=== PATIENT | male | born 1960 | race Caucasian/White ===

== ENCOUNTER 2018-07-22 10:26 | Inpatient (IN) | payer OTHER ==
[~2018-07-22] VITALS: Ht 182.8 cm; Wt 98.5 kg
[2018-07-22] VITALS (13 sets, daily range): BP systolic 90–134; BP diastolic 54–89
--- NOTE | ~2018-07-22 | EKG ---
[place], [place] ELECTROCARDIOGRAM REPORT NAME: MALU AGRAWAL JR UNIT #: [id number] ROOM: 521 DOCTOR: AGUSTINA DRAFT REPORT BIRTHDATE: [birth year] [facility] Test Date: 2018-07-25 Test Time: 00:44:21 Pat Name: MALU AGRAWAL Department: Room: 521 1 Gender: M Head Of Insight: Erica Roman : 1960 Requested By: JENNIFER TENA Order Number: [id number] Reading MD: Froylan Harrell Measurements Intervals [place] Rate: 60 P: 31 ND: 173 QRS: 61 QRSD: 103 T: 55 QT: 450 QTc: 450 Interpretive Statements Sinus rhythm Left atrial enlargement Borderline low voltage, extremity leads Baseline wander in lead(s) aVR,V3 Compared to ECG 07/22/2018 11:16:29 Atrial abnormality now present Atrial fibrillation no longer present Right-axis deviation no longer present ST (T wave) deviation no longer present Electronically Signed On 07-25-2018 5:57:39 PDT by Froylan Harrell CM:EKGRPT:ELECTROCARDIOGRAM REPORT [id number] JENNIFER BERRIOS DRAFT REPORT JENNIFER TENA MD
--- NOTE | ~2018-07-22 | EKG ---
[place], [place] ELECTROCARDIOGRAM REPORT NAME: MALU AGRAWAL JR UNIT #: [id number] ROOM: 521 DOCTOR: AGUSTINA DRAFT REPORT BIRTHDATE: [birth year] [facility] Test Date: 2018-07-25 Test Time: 05:48:02 Pat Name: MALU AGRAWAL Department: Room: 521 1 Gender: M Tanning Salon Attendant: Genesis Vazquez : 1960 Requested By: JENNIFER TENA Order Number: [id number] Reading MD: Eduard Allison MD Measurements Intervals [place] Rate: 57 P: 40 HI: 170 QRS: 65 QRSD: 97 T: 29 QT: 406 QTc: 396 Interpretive Statements Sinus rhythm Atrial premature complex Probable left atrial enlargement Borderline low voltage, extremity leads Baseline wander in lead(s) V1 Compared to ECG 07/22/2018 11:16:29 Atrial premature complex(es) now present Atrial fibrillation no longer present Right-axis deviation no longer present ST (T wave) deviation no longer present Electronically Signed On 07-29-2018 14:12:03 PDT by Eduard Allison MD CM:EKGRPT:ELECTROCARDIOGRAM REPORT [id number] JENNIFER TENA MD EPIPHANY DRAFT REPORT JENNIFER TENA MD
--- NOTE | ~2018-07-22 | EKG ---
[place], [place] ELECTROCARDIOGRAM REPORT NAME: MALU AGRAWAL JR UNIT #: [id number] ROOM: 521 DOCTOR: AGUSTINA DRAFT REPORT BIRTHDATE: [birth year] [facility] Test Date: 2018-07-22 Test Time: 11:16:29 Pat Name: MALU AGRAWAL Department: Room: 521 Gender: M Overedger: : 1960 Requested By: MELISSA REYNOSO Order Number: [id number] Reading MD: Gianni Carmona MD Measurements Intervals [place] Rate: 183 P: ID: QRS: 143 QRSD: 90 T: 59 QT: 296 QTc: 517 Interpretive Statements Atrial fibrillation with rapid V-rate Right axis deviation ST depression, probably rate related Baseline wander in lead(s) V2 Electronically Signed On 07-23-2018 4:45:06 PDT by Gianni Carmona MD CM:EKGRPT:ELECTROCARDIOGRAM REPORT [id number] MELISSA JJ DRAFT REPORT MELISSA REYNOSO DO
--- NOTE | ~2018-07-22 | CON ---
[place], [place] REPORT OF CONSULTATION NAME: MALU AGRAWAL JR [facility] #: [id number] UNIT #: [id number] ROOM: 521 DOCTOR: JENNIFER TENA MD BIRTHDATE: [birth year] DOS: 07/23/2018 HISTORY OF PRESENT ILLNESS: A 58-year-old gentleman basically came in, was found to be significantly hypotensive and was found to be in atrial flutter/fibrillation with rapid ventricular response. The patient did not have any chest discomfort. He drinks about 2-3 cups of coffee every day. He had a liter of yesterday's morning per his father. The patient has a family history of atrial fibrillation flutter. Right now, he continues to be in atrial fibrillation. He is on 15 mcg of Cardizem. Cardiac enzymes have been negative. PAST MEDICAL HISTORY: Contusion of the right knee, history of rib fractures. PAST SURGICAL HISTORY: History of cataract surgery, and chest tube placement. SOCIAL HISTORY: Denies any drug abuse, occasional alcohol use and not a smoker. FAMILY HISTORY: Positive for cardiac arrhythmia. Father had an ablation. ALLERGIES: CLARITHROMYCIN. HOME MEDICATIONS: Aspirin. REVIEW OF SYSTEMS: CONSTITUTIONAL: No fever, no chills. HEENT: Reports visual changes and dizziness. CARDIOVASCULAR: Does have palpitations. RESPIRATORY: Does have shortness of breath. GASTROINTESTINAL: No nausea, no vomiting. GENITOURINARY: No dysuria. PHYSICAL EXAMINATION: VITAL SIGNS: Blood pressure is 120/70. He is in atrial fibrillation, rate is about 95 beats per minute on 15 mcg of Cardizem. NECK: Supple, no JVD. LUNGS: Diminished breath sounds. HEART: Sounds are irregularly irregular. ABDOMEN: Soft, nontender. NEUROLOGICAL: Stable. LABORATORY DATA: Shows hemoglobin 14.2, hematocrit 43. Electrolytes are normal. Creatinine is 0.7. Cardiac enzymes have been negative. Hemoglobin A1c is 5.7, total protein 6.1. TSH is normal. IMPRESSION: With atrial fibrillation flutter with rapid ventricular response. Family history of atrial fibrillation. RECOMMENDATIONS: We will proceed with a Lexiscan Cardiolite stress test. We will review the echocardiogram. Also, start the patient on Rythmol, anticoagulate the patient and start rate control with beta blockers and if he does not control we will consider cardioversion. We will follow up. [place], [place] REPORT OF CONSULTATION NAME: MALU AGRAWAL JR [facility] UNIT #: [id number] ROOM: 521 DOCTOR: JENNIFER TENA MD BIRTHDATE: [birth year] JENNIFER TENA MD CM:CONSTR:REPORT OF CONSULTATION [id number] 07/31/18 0904 interface
--- NOTE | ~2018-07-22 | PR ---
[place], [place] PROGRESS NOTE NAME: MALU AGRAWAL JR [facility] #: [id number] UNIT #: [id number] ROOM: 521 DOCTOR: MEENAKSHI THOMAS MD BIRTHDATE: [birth year] DOS: 07/24/[address] Carmona. SUBJECTIVE: This patient was admitted 2 days ago with not feeling well. He did not have any palpitations. He had been feeling tired and weak. He did not have any swelling in the legs or much breathing difficulty, just did not feel right. He was found to be in atrial fibrillation with very rapid ventricular rate and he was treated with Cardizem to slow down the heart rate. He went in to sinus rhythm yesterday. He feels fine and has not had any nausea, vomiting or blood in the stools and has not had any chest pain or breathing difficulty and no palpitations and no neurological symptoms. PHYSICAL EXAMINATION: GENERAL: The patient is very pleasant, alert. He is comfortable. He is not tachypneic. VITAL SIGNS: Pulse is regular at 72, blood pressure is 115/75. NECK: JVP is +8 cm with positive AJR. LUNGS: He has markedly reduced breath sounds on the left side, mainly at the base and few adventitious sounds. EXTREMITIES: No edema in the lower extremities. DIAGNOSTIC DATA: Monitor shows normal sinus rhythm with heart rate in the 70s. An echocardiogram was read by Dr. Carmona with LV ejection fraction of 30-35%. I reviewed the images. I think the EF is close to 40%. He had a nuclear Cardiolite study done yesterday and myocardial perfusion images did not demonstrate any ischemia. IMPRESSION: 1. This patient has nonischemic cardiomyopathy, most likely tachycardia induced. 2. He has clinical evidence of cardiac decompensation, although he has minimal symptoms. RECOMMENDATIONS: This patient needs aggressive treatment for nonischemic cardiomyopathy. Metoprolol succinate is a better drug than tartrate, therefore, he will be switched over to same preparation at the same dose, i.e. IV 50 mg b.i.d. Propafenone is not a good drug because of the patient's significantly reduced LV systolic function. I would prefer amiodarone for the next few months and this should be started 36 hours after the last dose of propafenone. The patient does need small doses of furosemide as well and he needs to be on an GEOVANY inhibitor as well. An echocardiogram needs to be repeated in 2-4 weeks to see how much recovery LV has undergone. [place], [place] PROGRESS NOTE NAME: MALU AGRAWAL JR UNIT #: [id number] ROOM: 521 DOCTOR: MEENAKSHI THOMAS MD BIRTHDATE: [birth year] MEENAKSHI THOMAS MD CM:PNTRANS [id number] MEENAKSHI THOMAS MD 07/24/18 2030 interface
--- NOTE | ~2018-07-22 | ST ---
[place], [place] EXERCISE STRESS TEST REPORT NAME: MALU AGRAWAL JR [facility] #: [id number] UNIT #: [id number] ROOM: 521 DOCTOR: JENNIFER TENA MD BIRTHDATE: [birth year] DOS: 07/23/2018 PROCEDURE AND FINDINGS: Baseline echocardiogram, atrial fibrillation, slightly rapid ventricular response. 0.4 mg Lexiscan, duration of 10 seconds. With Lexiscan, no new EKG changes. Blood pressure and heart rate response are normal. Nuclear images will be reported separately. FINAL IMPRESSION: Indeterminate test secondary to underlying atrial fibrillation. No new EKG changes with Lexiscan. No chest pain with Lexiscan. Blood pressure and heart rate are normal. Nuclear images will be reported separately. JENNIFER TENA MD CM:STRESS:EXERCISE STRESS TEST REPORT [id number] JENNIFER TENA MD
[~2018-07-22 10:26] MED LIST: ASPIRIN325 MG PO; HYDROCODONE BIT1 T11 PO; MOTRIN800 MG PO; NAPROSYN500 MG PO; TYLENOL500 MG PO
[2018-07-22 11:18] LABS: BASO % 0.2 % (0.0-1.0); EOS % 0.3 % (1.0-4.0); HEMATOCRIT 45.2 % (42.0-52.0); LYMPH # 0.8 10*3/uL (1.3-4.4); LYMPH % 7.9 % (27.0-41.0); MEAN CELL VOLUME 94.2 fl (80.0-94.0); MEAN CORPUSCULAR HGB 31.3 pg (27.0-31.0); MEAN CORPUSCULAR HGB CONC 33.2 g/dl (33.0-37.0); MEAN PLATELET VOLUME 8.5 fl (9.6-12.3); MONO # 0.6 10*3/uL (0.1-1.0); MONO % 5.7 % (3.0-9.0); NEUT # 8.8 10*3/uL (2.3-7.9); NEUT % 85.5 % (47.0-73.0); PLATELET COUNT AUTOMATED 226 10*3/uL (130-400); RED CELL DISTRI WIDTH 12.9 % (0-14.5); WHITE BLOOD COUNT 10.3 10*3/uL (4.8-10.8)
--- NOTE | 2018-07-22 11:19 | NUR ---
PT'S RATE JUMPS FROM 70 TO 189. PROVIDER MADE AWARE. BP ALSO DROPS FROM 110 SYSTOLIC TO 90 SYSTOLIC (SEE). PT DENIES ANY COMPLAINTS.
[2018-07-22 11:38] LABS: ALBUMIN 3.4 gm/dl (3.1-4.5); ALKALINE PHOSPHATASE 67 U/L (45-117); BUN 22 mg/dl (7-24); CHLORIDE 108 mmol/L (98-107); CREATININE 1.13 mg/dL (0.70-1.30); POTASSIUM 3.9 mmol/L (3.5-5.1); SGOT/AST 15 IU/L (3-35); SGPT/ALT 16 U/L (12-78); SODIUM 142 mmol/L (136-145); TOTAL PROTEIN 6.7 gm/dL (6.4-8.2)
[2018-07-22 11:39] LABS: TROPONIN I < 0.015 ng/ml (<0.045)
--- NOTE | 2018-07-22 12:14 | NUR ---
PT HAS HAD MULTIPLE EPISODES WHERE HIS RATE AND RHYTHM RETURN TO SINUS AND UNDER 100 WHICH LAST FOR 30 SECONDS THEN IMMEDIATLEY JUMP BACK TO A RATE OF 180-190. A LITER BOLUS HAS INFUSED. THESE RHYTHM CHANGES WERE CAPTURED ON BEDSIDE MONITOR AND RECORDED.
--- NOTE | 2018-07-22 12:37 | NUR ---
DR REYNOSO DECLINES TO TREAT PT'S RAPID RATE OR HIS RIGHT BASILAR INFILTRATE, STATES HE SPOKE WITH HOSPITALIST ABOUT THESE ISSUES.
--- NOTE | 2018-07-22 12:49 | NUR ---
AT TIME OF ADMISSION, PT NOW STATES HE HAS AN "INVALID AND OBESE AT HOME WHO CAN'T TAKE CARE OF HERSELF IF I GET ADMITTED AND THERE IS NO ONE ELSE TO ASK....CAN YOU GET ME A ONSHORE DIVER TO TALK TO". DR REYNOSO MADE AWARE.
--- NOTE | 2018-07-22 13:01 | NUR ---
DR REYNOSO SPEAKS WITH PT AT LENGTH AND PT NOW ADMITS THAT HIS PARENTS COULD CARE FOTR HIS FOR A DAY OR TWO. TRANSPORT WAS TO BEGIN BUT THEN HOSPITALIST CAME TO ROOM. TRANSPORT PENDING. VITALS UNCHANGED, RATE 160.
--- NOTE | 2018-07-22 13:28 | NUR ---
A 58, admitted to , under the services of PAUL Vaughn DO with a diagnosis of ATRIAL FIB WITH RVR. Chief complaint is "STATES HE JUST FELT WEIRD". Patient arrived via stretcher from ER. Monitor applied. Initial assessment completed. Vital signs taken and recorded. PAUL VAUGHN DO notified of admission to the unit. Orders received. See assessment for past medical history, medications and allergies. Patient and/or family oriented to unit. [facility]. Clothing/patient valuable form completed. TARIQ ZAMBRANO
--- NOTE | 2018-07-22 15:41 | NUR ---
PT BP 118/62, HR 148 DR GOODMAN NOTIFIED
[2018-07-22 16:40] LABS: BILIRUBIN NEGATIVE (NEGATIVE); BLOOD 1+ (NEGATIVE); CLARITY CLEAR (CLEAR); COLOR YELLOW (YELLOW); GLUCOSE NEGATIVE (NEGATIVE); KETONE 1+ (NEGATIVE); LEUKO ESTERASE NEGATIVE (NEGATIVE); NITRITE NEGATIVE (NEGATIVE); UROBILINOGEN 0.2 E.U./dl (0.2-1.0)
[2018-07-22 16:59] LABS: BACTERIA 1+
[2018-07-22 17:00] LABS: EPITHELIAL CELLS 0-2
--- NOTE | 2018-07-22 18:44 | NUR ---
PT REQUESTED AND WAS MEICATED WITH TYLENOL FOR C/O HEADACHE. CARDIZEM INFUSING PER ORDERS AT 15MG/HR. PT AFLUTTER ON MONIOR WITH RATE IN 100'S. CALL LIGHT IN REACH. WILL MONITOR
--- NOTE | 2018-07-22 18:45 | NUR ---
DR GOODMAN NOTIFIED OF LOVENOX ORDER AND HEPARIN SQ. ORDERS RECEIVED TO DC LOVENOX AND KEEP HEPARIN ORDERED BY DR TENA. ALSO NOTIFIED OF CARDIZEM INFUSING AT 15MG STILL WITH HR OF 100-110'S AND PT A FLUTTER. HE STATES UNDERSTANDING. MITCHEL HERNANDES
[2018-07-23] VITALS (9 sets, daily range): BP systolic 119–132; BP diastolic 58–89
--- NOTE | 2018-07-23 | NUR ---
PATIENT HEART RATE IS IN THE 70S-90S CARDIZEM DRIP TITRATED DOWN TO 5ML/HR. NOTIFIED DR. GTZ. WILL CONTINUE TO MONITOR.
--- NOTE | 2018-07-23 02:00 | NUR ---
PATIENT HEART RATE REMAINS BETWEEN 70-LOW 100S. CARDIZEM STILL RUNNING AT 5ML/HR. WILL CONTINUE TO MONITOR.
--- NOTE | 2018-07-23 04:00 | NUR ---
PATIENT UP TO WASH UP FOR STRESS TEST. PATIENT HEART RATE JUMPED UP TO THE 150S. CARDIZEM DRIP TURNED BACK UP TO 15ML/HR. PATIENT ASYMPTOMATIC. NOTIFIED DR. GTZ. NO NEW ORDERS RECEIVED WILL CONTINE TO MONITOR.
--- NOTE | 2018-07-23 05:59 | NUR ---
PATIENT HEART RATE IS NOW IN THE LOW 100S. CARDIZEM DRIP STILL RUNNING AT 15ML/HR. WILL CONTINUE TO MONITOR.
--- NOTE | 2018-07-23 06:14 | NUR ---
PATIENT OFF FLOOR FOR STRESS TEST.
[2018-07-23 06:37] LABS: BASO % 0.1 % (0.0-1.0); EOS # 0.1 10*3/uL (0.0-0.4); EOS % 1.5 % (1.0-4.0); HEMOGLOBIN 14.2 g/dl (14.0-18.0); LYMPH # 1.3 10*3/uL (1.3-4.4); LYMPH % 17.7 % (27.0-41.0); MEAN CELL VOLUME 94.9 fl (80.0-94.0); MEAN CORPUSCULAR HGB 31.3 pg (27.0-31.0); MEAN PLATELET VOLUME 8.8 fl (9.6-12.3); MONO # 0.7 10*3/uL (0.1-1.0); MONO % 9.4 % (3.0-9.0); NEUT # 5.3 10*3/uL (2.3-7.9); PLATELET COUNT AUTOMATED 199 10*3/uL (130-400); RED BLOOD COUNT 4.53 10*6/uL (4.50-5.90); RED CELL DISTRI WIDTH 12.9 % (0-14.5); WHITE BLOOD COUNT 7.4 10*3/uL (4.8-10.8)
[2018-07-23 07:02] LABS: ALBUMIN 3.2 gm/dl (3.1-4.5); ALKALINE PHOSPHATASE 58 U/L (45-117); BUN 18 mg/dl (7-24); CHLORIDE 110 mmol/L (98-107); CHOLESTEROL 160 mg/dL (<200); CREATININE 0.73 mg/dL (0.70-1.30); FREE T4 1.05 ng/dl (0.76-1.46); HDL CHOLESTEROL 55 mg/dl (40-60); LDL CHOLESTEROL 86 mg/dL (9-159); PHOSPHOROUS 2.5 mg/dL (2.5-4.9); POTASSIUM 3.7 mmol/L (3.5-5.1); SGOT/AST 15 IU/L (3-35); SGPT/ALT 17 U/L (12-78); SODIUM 143 mmol/L (136-145); TOTAL PROTEIN 6.1 gm/dL (6.4-8.2); TRIGLYCERIDES 97 mg/dl (<150); VLDL CHOLESTEROL 19 mg/dL (6-40)
--- NOTE | 2018-07-23 07:30 | NUR ---
INFORMED CONSENT SIGNED FOR LEXISCAN STRESS TEST WITH DR TENA. RESTING KEG A-FIB, HR 115, BP 122/70. PULSE OX 97% AND LUNGS CLEAR. COMPLETED ONE MINUTE OF A LEXISCAN PROTOCOL RECEIVING LEXISCAN 0.4MG OVER 10 SEC[address] NO ARRHYTHMI[address] OR ST CHANGES NOTED. PT DID C/O FEELING WARM. LAST RECOVERY HR 115, BP 100/62. WAITING NUCLEAR SCANNING IN STABLE CONDITION.
[2018-07-23 07:35] LABS: VITAMIN D, 25-HYDROXY 26.4 ng/mL (30-100)
--- NOTE | 2018-07-23 09:00 | NUR ---
CARDIZEM GTT DECREASED TO 10MG/HR HR LOW 100S.
--- NOTE | 2018-07-23 09:52 | NUR ---
PT HR 70-80S. CARDIZEM GTT STOPPED DR TRAMMELL NOTIFIED
--- NOTE | 2018-07-23 10:39 | NUR ---
Loss Prevention Supervisor in to talk to patient. Patient states lives at HOME with . There are NO steps in the home. Physician: [facility]acy: [facility] [place] [facility]: NONE Patient's level of ADLs: INDEPENDENT Patient has working utilities: YES DME: NONE Follow-up physician's appointment after d/c: WILL BE MADE BY HOSPITALIST NURSE DIRECTOR ON DISCHARGE Does patient want to access PORTAL?: NO Discharge plan PT LIVES AT HOME WITH HIS AND IS INDEPENDENT IN HIS CARE. DENIES ANY NEEDS ON DISCHARGE. PT WORKS. STATES HE WILL HAVE A RIDE HOME ON DISCHARGE. WILL CONTINUE TO FOLLOW.. MAHOGANY MORTENSEN
--- NOTE | 2018-07-23 22:45 | NUR ---
PATIENT MEDICATED WITH TYLENOL FOR C/O OF A HEADACHE. WILL CONTINUE TO MONITOR.
[2018-07-24] VITALS: BP 115/75
--- NOTE | 2018-07-24 03:54 | NUR ---
PATIENT RESTING IN BED. SLEEPING. HEART RATE REMAINS IN THE 70S PER WOOD CRAFTER. REPSIRATIONS EASY, NON LABORED.NO SIGNS OF DISTRESS. BED IN LOWEST POSITION, CALL LIGHT WITHIN REACH. WILL CONTINUE TO MONITOR.
[2018-07-24 06:22] LABS: BUN 20 mg/dl (7-24); CHLORIDE 107 mmol/L (98-107); CREATININE 0.87 mg/dL (0.70-1.30); SODIUM 140 mmol/L (136-145)
--- NOTE | 2018-07-24 06:47 | NUR ---
PER DOCTOR DARINEL PATIENT OKAY FOR DISCHARGE. KEEP PATIENT ON RYTHMOL, ELIQUIS AND LOPRESSOR AND FOLLOWUP WITH HIM IN 2 WEEKS. NO OTHER ORDERS RECEIVED.
[2018-07-24 08:00] VITALS: BP 130/80
--- NOTE | 2018-07-24 08:00 | NUR ---
Patient resting quietly with no c/o discomfort. Respirations easy and regular. Vital signs stable. No overt distress. ALDAIR SMYTH
--- NOTE | 2018-07-24 09:02 | NUR ---
24 HR chart check completed.
--- NOTE | 2018-07-24 11:30 | NUR ---
CALLED [facility] TO CHECK ON [employer]. THEY STATE THE INSURANCE THEY HAVE ON FILE TERMED IN FEBRUARY AND WITHOUT HIS NEW CARD ON FILE THEY CANNOT CHECK THE COST WITH IT. PT COST FOR 30 DAYS WITHOUT INSURANCE IS $535.00 HOSPITALIST NURSE DIRECTOR NOTIFIED.
[2018-07-24 12:00] VITALS: BP 136/77
--- NOTE | 2018-07-24 13:00 | NUR ---
MEDICATED WITH PO TYLENOL ORDERED PER PT REQUEST FOR C/O HEADACHE.
[2018-07-24 14:00] VITALS: BP 136/77
--- NOTE | 2018-07-24 15:00 | NUR ---
MEDICATION EFFECTIVE FOR HEADACHE.
[2018-07-24 16:00] VITALS: BP 114/60
--- NOTE | 2018-07-24 16:00 | NUR ---
Patient resting quietly with no c/o discomfort. Respirations easy and regular. Vital signs stable. No overt distress. ALDAIR SMYTH
--- NOTE | 2018-07-24 19:26 | NUR ---
SITTING UP ON SIDE OF BED WATCHING TV. DENIES ANY NEEDS OR COMPLAINTS CURRENTLY. BED IS IN LOWEST POSITION WITH WHEELS LOCKED. SIDE RAIL UP X2. CALL LIGHT IS WITHIN REACH. ENCOURAGED TO USE CALL LIGHT FOR NEEDS. WILL CONTINUE TO MONITOR.
[2018-07-24 20:00] VITALS: BP 120/71
[2018-07-25] VITALS: BP 126/77
--- NOTE | 2018-07-25 00:32 | NUR ---
PATIENT RHYTHM CHANGED. STAT EKG ORDERED. DR. MCKEON AWARE. NO NEW ORDERS.
--- NOTE | 2018-07-25 02:35 | NUR ---
PATIENT SLEEPING. HEART RATE IN THE 130S. NOTIFIED DR. MCKEON. TOLD TO GIVE A NONSCHEDULED DOSE OF TOPOL XL. WILL CONTINUE TO MONITOR.
--- NOTE | 2018-07-25 03:18 | NUR ---
SPOKE TO DR. THOMAS REGARDING PATIENTS HEART RATE BEING IN THE 130S. INFORMED HIM PATIENTS TOPROL XL WAS HELD AT 2200 BC OF A LOW HEART RATE. DR. THOMAS STATED GIVE HIS TOPROL XL NOW. THIS NURSE STATED SHE DID 40MINUTES AGO. NO OTHER ORDERS RECEIVED. DR. MCKEON NOTIFIED. WILL CONTINUE TO MONITOR.
--- NOTE | 2018-07-25 05:42 | NUR ---
HEART RATE NOW 46. DR. MCKEON CALLING DR. TENA.
--- NOTE | 2018-07-25 05:42 | NUR ---
PATIENT HEART RATE 160S. NOTIFIED DR. TENA. SEE NEW ORDES. DR MCKEON PRESENT ON FLOOR. PATIENT ASYMPTOMATIC.
--- NOTE | 2018-07-25 05:50 | NUR ---
PER DR. TENA D/C HUGO FRAZIER. GIVE 400MG OF PO AMIODARONE NOW IF HEART RATE >50. WILL CONTINUE TO MONITOR.
[2018-07-25 06:02] VITALS: BP 119/67
--- NOTE | 2018-07-25 07:25 | NUR ---
24 HR chart check completed.
[2018-07-25 08:00] VITALS: BP 120/80
--- NOTE | 2018-07-25 08:00 | NUR ---
Patient resting quietly with no c/o discomfort. Respirations easy and regular. Vital signs stable. No overt distress. ALDAIR SMYTH
--- NOTE | 2018-07-25 10:10 | NUR ---
DR TENA PHONED IN, UPDATED ON VITAL SIGNS AND STATES OK TO DISCHARGE. HE IS TO CALL [facility] HIMSELF.
[2018-07-25] MEDS ORDERED: LISINOPRIL2.5 MG PO (10:29)
[2018-07-25] MEDS ORDERED: PACERONE200 MG PO ×2 (10:29)
[2018-07-25] MEDS ORDERED: XARE20MG PO (10:29)
[2018-07-25] MEDS ORDERED: TOPROL XL25 MG PO (10:29)
--- NOTE | 2018-07-25 11:08 | NUR ---
PT CONTINUES TO DENY HOME NEEDS ON DISCHARGE. WILL CONTINUE TO FOLLOW.
[2018-07-25 12:00] VITALS: BP 108/80
--- NOTE | 2018-07-25 12:00 | NUR ---
Patient resting quietly with no c/o discomfort. Respirations easy and regular. Vital signs stable. No overt distress. ALDAIR SMYTH
--- NOTE | 2018-07-25 15:24 | NUR ---
PT LEAVING IN CARE OF PARENTS AND WILL HAND BRUSH FILLER SCRIPTS AT OUR PHARMACY.
== END 2018-07-25 15:24 | disposition home or self-care (01) | DRG 309 ==
LOC: ED 10:26 → 5E 12:34 → EDHOLD 12:34 → 5E 12:41
PROVIDERS: Emergency Medicine; Internal Medicine; ADMIT Internal Medicine
PROC: 4A02XM4 Measurement of Cardiac Total Activity, External Approach (ICD-10-PCS; principal; 2018-07-23)
PROC: 3E073KZ Introduction of Other Diagnostic Substance into Coronary Artery, Percutaneous Approach (ICD-10-PCS; principal; 2018-07-23)
DX: I48.0 Paroxysmal atrial fibrillation (principal); E44.1 Mild protein-calorie malnutrition; E87.2 Acidosis; I48.92 Unspecified atrial flutter; E87.8 Other disorders of electrolyte and fluid balance, not elsewhere classified; I42.9 Cardiomyopathy, unspecified; I95.9 Hypotension, unspecified; Z88.1 Allergy status to other antibiotic agents; Z83.3 Family history of diabetes mellitus; Z82.49 Family history of ischemic heart disease and other diseases of the circulatory system; Z82.0 Family history of epilepsy and other diseases of the nervous system; Z79.82 Long term (current) use of aspirin; Z98.49 Cataract extraction status, unspecified eye; Z79.01 Long term (current) use of anticoagulants; Z68.31 Body mass index [BMI] 31.0-31.9, adult

== ENCOUNTER → 2022-07-12 | Outpatient (CLI) | payer SELFPAY ==
[~2022-07-12] MED LIST changes: +LISINOPRIL2.5 MG PO; +PACERONE200 MG PO; +TOPROL XL25 MG PO; +XARE20MG PO
== END | disposition home or self-care (01) ==
LOC: RESCLI 14:39
PROVIDERS: ATTEND Student in an Organized Health Care Education/Training Program
DX: I48.0 Paroxysmal atrial fibrillation (principal); I10 Essential (primary) hypertension; Z91.09 Other allergy status, other than to drugs and biological substances; Z88.8 Allergy status to other drugs, medicaments and biological substances; Z98.890 Other specified postprocedural states; Z79.01 Long term (current) use of anticoagulants; Z79.899 Other long term (current) drug therapy

== ENCOUNTER → 2024-06-05 | Outpatient (CLI) | payer OTHER | END | disposition home or self-care (01) | LOC: US 09:30 | PROVIDERS: ATTEND Family Medicine | DX: Q53.01 Ectopic testis, unilateral (principal); R31.9 Hematuria, unspecified; N50.82 Scrotal pain ==

== ENCOUNTER → 2024-08-07 | Outpatient (CLI) | payer OTHER ==
[2024-08-07 10:07] LABS: HEMATOCRIT 44.5 % (42.0-52.0); MEAN CELL VOLUME 101.1 fl (80.0-94.0); MEAN CORPUSCULAR HGB CONC 31.7 g/dl (33.0-37.0); MEAN PLATELET VOLUME 8.7 fl (9.6-12.3); PLATELET COUNT AUTOMATED 241 10*3/uL (130-400); RETICULOCYTE % 2.32 % (0.50-2.50); WHITE BLOOD COUNT 7.8 10*3/uL (4.8-10.8)
[2024-08-07 10:27] LABS: ALKALINE PHOSPHATASE 74 U/L (46-116); BUN 17 mg/dl (9-23); CHLORIDE 103 mmol/L (98-107); POTASSIUM 4.5 mmol/L (3.4-5.1); SGPT/ALT 15 U/L (5-49); TOTAL PROTEIN 6.7 gm/dL (6.0-8.0)
[2024-08-07 11:14] LABS: TOTAL CELLS COUNTED 100 #CELLS
[2024-08-07 11:16] LABS: PLATELET SUFFICIENCY NORMAL (NORMAL)
== END | disposition home or self-care (01) ==
LOC: LAB 09:41
PROVIDERS: Student in an Organized Health Care Education/Training Program; ATTEND Family Medicine
DX: D53.9 Nutritional anemia, unspecified (principal)

== ENCOUNTER → 2025-01-29 | Outpatient (CLI) | payer OTHER | END | disposition home or self-care (01) | LOC: LAB 11:13 | PROVIDERS: ATTEND Internal Medicine Hematology & Oncology | DX: D47.2 Monoclonal gammopathy (principal) ==